=== PATIENT | female | born 1960 | race Caucasian/White ===

== ENCOUNTER → 2017-08-12 10:39 | Outpatient (CLI) | payer BC, SELFPAY ==
[2017-08-12 12:21] LABS: Creatinine, Serum 0.69 mg/dL (0.55-1.02); EST Glomerular Filtration Rate 94 mL/min (>60); Est Glom Filt Rate - Afr Amer 114 mL/min (>60)
== END ==
PROVIDERS: Family Provider Family Medicine; PCP Family Medicine; Visit Provider Orthopaedic Surgery Orthopaedic Surgery of the Spine
DX: Z98.890 Other specified postprocedural states (principal)
CPT/HCPCS: 36415; 82565

== ENCOUNTER → 2019-12-06 16:30 | Outpatient (CLI) | payer BC, SELFPAY | PROVIDERS: PCP Family Medicine; Visit Provider Family Medicine | DX: R19.7 Diarrhea, unspecified (principal) | CPT/HCPCS: 87493; 87506 ==

== ENCOUNTER 2022-02-09 15:25 | Emergency (ER) | payer BC, SELFPAY ==
[2022-02-09 15:27] VITALS: BP 161/82; PULSE 62; RESP 16; TEMP 36.4; O2SAT 98; BMI 23.0
[2022-02-09 15:39] VITALS: BP 153/83; PULSE 59; RESP 18; TEMP 36.4; O2SAT 98
[2022-02-09 15:41] VITALS: BMI 23.8
--- NOTE | 2022-02-09 16:19 | EDS_ITS ---
HPI History of Present Illness Chief Complaint: Numb/Ting Informant: patient Onset/Context/Timing Onset: Days (3) Context: Sudden Onset Timing: Continuous Quality: Tingling, weakness Location: Right lower extremity Worsened by: Nothing Relieved by: Ice packs Narrative Narrative: Patient presents with numbness and tingling to her right leg for the past 2 days. Patient states she has some paresthesias over the lateral aspect of her right foot. Patient states her right lower extremity was weaker initially. Patient states she was having difficulty walking because of this on Monday but this is better currently. Patient also admits to some white spots in her vision and blurred vision in her right eye for the past couple days as well. Patient admits to a mild headache. Patient denies any difficulty breathing or difficulty swallowing. [facility] Medical History (Updated 02/09/22 @ 19:[address] Boby Fox DO) Anxiety Hypertension Home Medications lisinopril 10 mg tablet 10 mg PO DAILY 02/09/22 [History Last Taken Unknown] metoprolol tartrate 100 mg tablet 100 mg PO DAILY 02/09/22 [History Last Taken Unknown] Allergy/AdvReac Type Severity Reaction Status Date / Time No Known Allergies Allergy Verified 02/09/22 15:46 Surgical History (Updated 02/09/22 @ 16:[address] Boby Fox DO) History of back surgery Social History Smoking Status: Current every day smoker tobacco type: cigarettes ROS ROS ED Constitutional Constitutional ED: Denies chills or fever(s) Eyes Eyes: Reports blurry vision right and change in vision right; Denies diplopia ENT ENT ED: Denies rhinorrhea or sore throat Cardiovascular Cardiovascular: Denies chest pain or palpitations Respiratory/Chest Respiratory/Chest: Denies cough or dyspnea Gastrointestinal Gastrointestinal: Denies nausea or vomiting Genitourinary Genitourinary ED: Denies dysuria or hematuria Musculoskeletal Musculoskeletal: Denies back pain or neck pain Integumentary Denies abscess or rash Neurologic Neurologic: Reports paresthesias RLE and weakness; Denies headache(s) Allergic/Immunologic Allergic/Immunologic ED: Denies mouth swelling or urticaria EXAM Physical Exam Const Vital Signs: 02/09/22 15:27 02/09/22 15:39 02/09/22 17:27 Temperature 97.6 F L 97.5 F L Temperature Source Temporal Oral Pulse Rate 62 59 L 69 Respiratory Rate 16 18 25 H Blood Pressure 161/82 H 153/83 H 122/57 H Blood Pressure Mean 108 106 78 Pulse Ox 98 98 97 Oxygen Delivery Method Room Air Room Air Room Air Positive well nourished and well developed General Appearance ED: well developed and NAD HEENT Reports moist mucous membranes Neck supple and no JVD Resp normal respiratory effort and clear to auscultation bilaterally Cardio regular rate, regular rhythm and no murmurs GI normal to inspection, nondistended, normoactive bowel sounds and non-tender Palpation: soft Extremity normal to inspection General Extremety ED: Negative for edema or tenderness General Extremity: Negative for edema Neuro oriented x3 and CN's II-XII intact bilaterally Sensorium / Orientation: alert Sensory Exam: sensory level loss detected Location: L5 (Right) Motor Exam: strength 5/5 throughout Psych mental status grossly normal Skin no rashes or lesions noted MDM MDM MDM Narrative Medical decision making narrative: CBC was within normal limits. Comprehensive metabolic profile was within normal limits. PT was INR and PTT were normal. Lactate was normal. Urinalysis does not show any evidence of urinary tract infection or hematuria. High-sensitivity troponin was normal. CT scan of the brain was obtained. There is a 5.2 x 2.2 x 2.4 cm ischemic infarct in the medial left posterior parietal region. There is no hemorrhage. There are no other acute intracranial abnormalities. This was interpreted by the radiologist and reviewed by myself. Patient was advised of her findings. I recommended admission to the hospital for further evaluation. Patient does not want to stay in the hospital. Patient states she has a family member with special needs who she needs to care for. Patient will sign out AGAINST MEDICAL ADVICE. I discussed the case with Dr. Sweeney who was covering for Dr. Valentino. He will have the patient follow-up in the office. He recommended starting the patient on aspirin. Patient was instructed to take 1 aspirin per day. Patient was instructed return if worse in any way. Patient understands and is agreeable with the plan. All questions were answered. Lab Data Attestation: I reviewed the patient's lab results. Labs: Laboratory Results - last 24 hr 02/09/22 02/09/22 02/09/22 16:33 16:33 16:33 WBC 10.0 RBC 4.65 Hgb 14.7 Hct 44.1 MCV 94.8 MCH 31.6 MCHC 33.3 RDW Std Deviation 42.9 RDW Coeff of Jerrell 12.3 Plt Count 316 MPV 8.7 Immature Gran % (Auto) 0.300 Neut % (Auto) 71.2 H Lymph % (Auto) 19.3 Johnston % (Auto) 5.6 Eos % (Auto) 3.0 Baso % (Auto) 0.6 Absolute Neuts (auto) 7.1 Absolute Lymphs (auto) 1.93 Nucleated RBC % 0 PT 13.2 INR 1.0 APTT 36.0 Sodium 136 Potassium 4.0 Chloride 105 Carbon Dioxide 23.0 Anion Gap 8 BUN 11 Creatinine 0.63 Estim Creat Clear Calc 88.90 Est GFR (MDRD) Af Amer 125 Est GFR (MDRD) Non-Af 103 BUN/Creatinine Ratio 17.6 Glucose 116 H Lactic Acid Calcium 9.0 Total Bilirubin 0.40 AST 19 ALT 23 Alkaline Phosphatase 110 Troponin I High Sens 10 Total Protein 7.0 Albumin 3.6 Globulin 3.4 Albumin/Globulin Ratio 1.1 Urine Color Urine Clarity Urine pH Ur Specific [place] Urine Protein Urine Glucose (UA) Urine Ketones Urine Occult Blood Urine Nitrite Urine Bilirubin Urine Urobilinogen Ur Leukocyte Esterase Urine RBC Urine WBC Ur Squamous Epith Cells Urine Bacteria Urine Mucus 02/09/22 02/09/22 16:33 17:30 WBC RBC Hgb Hct MCV MCH MCHC RDW Std Deviation RDW Coeff of Jerrell Plt Count MPV Immature Gran % (Auto) Neut % (Auto) Lymph % (Auto) Johnston % (Auto) Eos % (Auto) Baso % (Auto) Absolute Neuts (auto) Absolute Lymphs (auto) Nucleated RBC % PT INR APTT Sodium Potassium Chloride Carbon Dioxide Anion Gap BUN Creatinine Estim Creat Clear Calc Est GFR (MDRD) Af Amer Est GFR (MDRD) Non-Af BUN/Creatinine Ratio Glucose Lactic Acid 1.0 Calcium Total Bilirubin AST ALT Alkaline Phosphatase Troponin I High Sens Total Protein Albumin Globulin Albumin/Globulin Ratio Urine Color Yellow Urine Clarity Clear Urine pH 6.0 Ur Specific [place] 1.010 Urine Protein Negative Urine Glucose (UA) Normal Urine Ketones Negative Urine Occult Blood 50 H Urine Nitrite Negative Urine Bilirubin Negative Urine Urobilinogen Normal Ur Leukocyte Esterase Negative Urine RBC 0 SEEN Urine WBC 0 SEEN Ur Squamous Epith Cells 0 SEEN Urine Bacteria 0 SEEN Urine Mucus 0 SEEN Radiography Diagnostic Testing: Clinical Impression(s) from Imaging Studies Brain CT 02/09/22 16:52 IMPRESSION: 1. Relatively large 5.2 cm x 2.2 cm x 2.4 cm ischemic infarct in the medial left posterior parietal region without a hemorrhagic component. 2. No evidence of other intracranial infarcts, mass lesions, hemorrhage or hematomas. 3. No midline shift. 4. Normal calvarium and paranasal sinuses. Electronically Signed: Pollo Kimball MD at 17:53 EDT , Discharge Plan Triage Chief Complaint: Numb/Ting ED Provider: Boby Fox Dx/Rx/DC Orders Clinical Impression: Stroke, Hypertension Instructions: ED Stroke, Completed Prescriptions: No Action metoprolol tartrate 100 mg Tablet 100 mg PO DAILY lisinopril 10 mg Tablet 10 mg PO DAILY Primary Care Provider: Yomi Valentino Referrals: Yomi Sweeney MD [Non-Staff] - Yomi Valentino MD [Primary Care Provider] - 3-5 Days Activity Restrictions/Additional Instructions: Take 1 [id number] aspirin per day. Disposition Disposition: Against Medical Advice
[2022-02-09 16:42] LABS: Absolute Lymphocyte Count 1.93 X10^3/uL (0.83-4.51); Absolute Neutrophil Count 7.1 X10^3/uL (2.0-7.7); Basophil# 0.06 X10^3/uL; Basophil% 0.6 % (0-1); Hematocrit 44.1 % (37-47); Hemoglobin 14.7 g/dL (12.0-15.0); Lymphocyte # 1.93 X10^3/ul (0.83-4.51); Lymphocyte % 19.3 % (19-41); Mean Corp Hgb Conc 33.3 g/dL (32-36); Mean Corpuscular Hgb 31.6 pg (27.0-32.0); Mean Corpuscular Volume 94.8 fL (81-99); Mean Platelet Vol. 8.7 fl (6.2-12.0); Monocyte# 0.56 X10^3/uL; Monocyte% 5.6 % (0-10); NRBC Flagged by Analyzer 0 % (0-5); Neutrophil # 7.11 X10^3/uL (2.7-7.7); Neutrophil % 71.2 % (47-70); Platelet Count 316 K/mm3 (150-450); RBC Distribution Width CV 12.3 % (11.6-14.6); RBC Distribution Width SD 42.9 fl (35.1-43.9); Red Blood Count 4.65 M/mm3 (4.2-5.4)
--- NOTE | 2022-02-09 16:52 | CT_ITS ---
STUDY: CT BRAIN WITHOUT CONTRAST ADMINISTRATION OF 1656 HOURS ON 02/09/2022 REASON FOR EXAM: 61-year-old female with weakness. RADIATION DOSAGE (If Supplied By Facility): CTDIvol = ( 44.99 ) mGy, DLP = ( 812.98 ) mGycm. TECHNIQUE: Transaxial CT imaging of the brain was performed without administration of intravenous contrast material. Individualized dose optimization techniques were used for this CT. Sagittal and coronal reconstructions were obtained and all were demonstrated in osseous and soft tissue algorithms. COMPARISON: No relevant priors. FINDINGS: There is an ischemic infarct measuring 5.2 cm x 2.2 cm x 2.4 cm in the medial left posterior parietal region. No evidence of a hemorrhagic component. No evidence of other intracranial infarcts, mass lesions, hemorrhage or hematomas. There is no midline shift. The ventricular system is of normal size and configuration. Normal calvarium without linear or depressed skull fractures. There are normal paranasal sinuses. CT/Brain/Head without Contrast IMPRESSION: 1. Relatively large 5.2 cm x 2.2 cm x 2.4 cm ischemic infarct in the medial left posterior parietal region without a hemorrhagic component. 2. No evidence of other intracranial infarcts, mass lesions, hemorrhage or hematomas. 3. No midline shift. 4. Normal calvarium and paranasal sinuses. Electronically Signed: Pollo Kimball MD at 17:53 EDT ,
[2022-02-09 16:56] LABS: Prothrombin Time (Protime)PT. 13.2 SECONDS (11.7-14.9)
[2022-02-09 17:03] LABS: ALB/GLOB Ratio 1.1 RATIO (0.9-2.4); AST(SGOT) 19 U/L (15-37); Alanine Aminotransfer ALT/SGPT 23 U/L (13-56); Albumin, Serum 3.6 g/dL (3.2-5.0); Alkaline Phosphatase 110 U/L (45-117); Anion Gap 8 (5-15); BUN 11 mg/dL (7-18); BUN/Creat Ratio 17.6 RATIO (10-20); Chloride 105 mmol/L (98-107); Creatinine, Serum 0.63 mg/dL (0.55-1.02); EST Glomerular Filtration Rate 103 mL/min (>60); Est Glom Filt Rate - Afr Amer 125 mL/min (>60); Globulin 3.4 g/dL (2.2-4.2); Glucose 116 mg/dL (74-106); Sodium Level 136 mmol/L (136-145); Troponin-I HS 10 pg/mL (3.0-54.0)
[2022-02-09 17:27] VITALS: BP 122/57; PULSE 69; RESP 25; O2SAT 97
[2022-02-09 17:38] LABS: Bacteria 0 SEEN /hpf (None Seen); Mucous, Urine 0 SEEN /hpf (<or=2+); Red Blood Cells-Urine 0 SEEN /hpf (0-5); Squamous Epithelial Cells - UA 0 SEEN /hpf (5-10); White Blood Cells 0 SEEN /hpf (0-5)
[2022-02-09 17:40] LABS: Color, Urine Yellow (Yellow); Glucose, Dipstick Normal (Normal); Ketone-Dipstick Negative (Negative); Leukocyte Esterase-Dipstick Negative /ul (Negative); Nitrite-Dipstick Negative (Negative); Occult Blood-Urine 50 /ul (Negative); Protein-Dipstick Negative (Negative); Urine Bilirubin Dipstick Negative (Negative); Urine Clarity Clear (Clear); Urine Urobilinogen Normal (Normal)
[2022-02-09 19:03] VITALS: BP 142/79; PULSE 59; RESP 17; O2SAT 94
[2022-02-09 19:14] VITALS: BP 142/79; PULSE 59; RESP 16; O2SAT 93
== END 2022-02-09 19:25 | disposition left against medical advice (07) ==
PROVIDERS: Emergency Provider Emergency Medicine; PCP Family Medicine; Visit Provider Emergency Medicine
DX: I63.9 Cerebral infarction, unspecified (principal); I10 Essential (primary) hypertension; F17.210 Nicotine dependence, cigarettes, uncomplicated; Z79.899 Other long term (current) drug therapy; Z53.29 Procedure and treatment not carried out because of patient's decision for other reasons
CPT/HCPCS: 70450; 80053; 81001; 83605; 84484; 85025; 85610; 85730; 99285; A4216

== ENCOUNTER → 2022-02-23 | Outpatient (CLI) | payer BC, SELFPAY ==
--- NOTE | 2022-02-23 07:26 | CT_ITS ---
STUDY: CTA HEAD AND NECK WITH CONTRAST REASON FOR EXAM: Female, 61 years old. Confirmed L posterior parietal ischemic CVA; further work up for RADIATION DOSAGE (If Supplied By Facility): CTDIvol = ( 29.31 ) mGy, DLP = ( 1508.47 ) mGycm TECHNIQUE: CT angiography was performed with a multi-detector CT scanner. Data acquisition was obtained from the skull base through the vertex following intravenous administration of IV 100mL Isovue-370. MIP images were reconstructed from the axial data set. Post-processing of the angiographic images was performed, with multiplanar reformation and 3D reconstruction. Individualized dose optimization techniques were used for this CT. COMPARISON: No relevant priors. FINDINGS: Normal bilateral petrous carotid arteries. Normal right cavernous carotid artery with a normal supraclinoid bifurcation. Normal left cavernous carotid artery with a normal supraclinoid bifurcation. Normal right A1 segments of the anterior cerebral artery. Normal left A1 segments of the anterior cerebral artery. Normal intact anterior communicating artery (ACOM). Normal bilateral A2 segments of the anterior cerebral arteries. Normal right M1 and M2 segments of the middle cerebral arteries, with a normal M1 bifurcation. Normal left M1 and M2 segments of the middle cerebral arteries, with a normal M1 bifurcation. Normal right posterior communicating artery (PCOM). Normal left posterior communicating artery (PCOM). Normal bilateral vertebral arteries. Normal basilar artery with a normal basilar bifurcation. The visualized bilateral superior cerebellar (SCA) arteries are normal. Normal bilateral P1, P2 and visualized P3 segments of the posterior cerebral arteries. There is no demonstrated aneurysm of the [place]. Persistent mild decreased attenuation in the posterior left parietal region in keeping with prior infarction. It is less hypodense at this time. No surrounding edema is seen. AORTIC ARCH: There is atherosclerotic calcific plaque formation of the aortic arch and great vessels arising from the aortic arch, without a hemodynamically significant stenosis. There is a normal origin of the brachiocephalic, left common carotid, and left subclavian arteries. Focal plaque calcification at the origin of the right brachiocephalic artery. Mild enlargement of the right lobe of the thyroid. Heterogeneous appearance of both lobes slightly more prominent on the right side. RIGHT CAROTID ARTERIES: Normal right common carotid artery (CCA). Normal right common carotid bulb. Normal origin of the right internal carotid (ICA) artery without a hemodynamically significant stenosis. Normal visualized cervical portion of the right internal carotid artery. Normal origin of the right external carotid artery (ECA). LEFT CAROTID ARTERIES: Normal left common carotid artery (CCA). Normal left common carotid bulb. Normal origin of the left internal carotid (ICA) artery without a hemodynamically significant stenosis. Normal visualized cervical portion of the left internal carotid artery. Normal origin of the left external carotid artery (ECA). VERTEBRAL ARTERIES: There is enhancement within the bilateral vertebral arteries with a small right vertebral artery, and a dominant left vertebral artery. CT/CTA Head AND Neck W/ Contrast IMPRESSION: Normal CTA Head and neck with contrast. Electronically Signed: Juan De Leon MD at 10:33 EDT ,
== END | disposition home or self-care (01) ==
PROVIDERS: PCP Family Medicine; Referring Provider Nurse Practitioner Family; Visit Provider Nurse Practitioner Family
DX: I63.9 Cerebral infarction, unspecified (principal)
CPT/HCPCS: 70496; 70498; Q9967

== ENCOUNTER → 2022-03-08 | Outpatient (CLI) | payer BC, SELFPAY | END | disposition home or self-care (01) | LOC: PSN 09:06 | PROVIDERS: PCP Family Medicine; Referring Provider Nurse Practitioner Family; Visit Provider Nurse Practitioner Family | DX: I63.9 Cerebral infarction, unspecified (principal) | CPT/HCPCS: 93225; 93226 ==

== ENCOUNTER → 2022-05-11 | Outpatient (CLI) | payer BC, SELFPAY ==
--- NOTE | 2022-05-11 09:11 | ECHOD_ITS ---
Reason For Study: ARRYTHMIA Procedure This was a 2D Doppler, Color Flow transthoracic echocardiogram. Exam performed in department. Left Ventricle Normal LV size. Left ventricular systolic function is normal. The estimated ejection fraction is 60 %. Stage 2 diastolic dysfunction. No regional wall motion abnormalities noted. Right Ventricle Normal RV size. Normal systolic function. Atria Normal left atrium. Normal right atrium. Mitral Valve Normal mitral valve. Mild (1+) eccentric mitral valve insufficiency. Tricuspid Valve Normal tricuspid valve. Aortic Valve Trisinus/trileaflet aortic valve. Mild (1+) aortic valve insufficiency. Pulmonic Valve Normal pulmonic valve. Great Vessels Normal aortic root. The pulmonary artery is normal size. Normal inferior vena cava. Pericardium/Pleural No pericardial effusion. MMode/2D Measurements & Calculations LVIDd: 4.7 cm IVSd: 1.1 cm LAV(MOD-sp4): 31.1 ml LVIDs: 2.9 cm LVPWd: 0.96 cm FS: 38.9 % LVAd ap4: 20.3 cm2 SV(MOD-sp4): 33.0 ml SV(sp4-el): 35.0 ml LVLd ap4: 6.0 cm EDV(MOD-sp4): 57.2 ml EDV(sp4-el): 58.1 ml LVAs ap4: 12.2 cm2 LVLs ap4: 5.5 cm ESV(MOD-sp4): 24.2 ml ESV(sp4-el): 23.1 ml EF(MOD-sp4): 57.7 % EF(sp4-el): 60.3 % LA A4 area: 13.5 cm2 LA dimension(2D): 3.6 cm RA A4 area: 15.6 cm2 Time Measurements MV dec time: 0.23 sec Doppler Measurements & Calculations MV E max babak: 54.5 cm/sec Lat Peak E' Babak: 6.0 cm/sec Med Peak E' Babak: 4.6 cm/sec MV A max babak: 43.5 cm/sec E/E' lat: 9.0 E/E' med: 11.9 MV E/A: 1.3 MV V2 max: 71.4 cm/sec Ao V2 max: 111.9 cm/sec MV max P.1 mmHg MV dec slope: 240.7 cm/sec2 Ao max P.0 mmHg MV V2 mean: 33.0 cm/sec Ao V2 mean: 75.7 cm/sec MV mean P.56 mmHg Ao mean P.6 mmHg MV V2 VTI: 20.7 cm Ao V2 VTI: 28.2 cm AV (velocity ratio): 0.73 AI max babak: 475.7 cm/sec LV V1 max: 83.8 cm/sec TR max babak: 227.9 cm/sec AI max P.5 mmHg LV V1 max P.9 mmHg TR max P.8 mmHg AI dec slope: 287.0 cm/sec2 LV V1 mean P.5 mmHg AI P1/2t: 485.5 msec LV V1 mean: 57.4 cm/sec LV V1 VTI: 20.7 cm ECHO/Echo Complete Interpretation Summary Normal LV size. Left ventricular systolic function is normal. The estimated ejection fraction is 60 %. Stage 2 diastolic dysfunction. Mild (1+) eccentric mitral valve insufficiency. Ordering Physician: Cullen Uribe Referring Physician: Yomi Valentino Performed By: Huma Powell RCS
== END | disposition home or self-care (01) ==
LOC: CVS 09:11
PROVIDERS: PCP Family Medicine; Visit Provider Psychiatry & Neurology Neurology
DX: I10 Essential (primary) hypertension (principal); I50.30 Unspecified diastolic (congestive) heart failure; I63.9 Cerebral infarction, unspecified; Z86.79 Personal history of other diseases of the circulatory system; I34.0 Nonrheumatic mitral (valve) insufficiency
CPT/HCPCS: 93306

== ENCOUNTER → 2022-06-02 | Outpatient (CLI) | payer OTHER, SELFPAY | END | disposition home or self-care (01) | PROVIDERS: PCP Family Medicine; Referring Provider Psychiatry & Neurology Neurology; Visit Provider Psychiatry & Neurology Neurology | DX: G47.10 Hypersomnia, unspecified (principal) | CPT/HCPCS: 95806 ==

== ENCOUNTER → 2022-06-16 | Outpatient (CLI) | payer OTHER, SELFPAY ==
--- NOTE | 2022-06-16 17:10 | MRI_ITS ---
STUDY: MRI BRAIN WITH AND WITHOUT CONTRAST REASON FOR EXAM: Female, 61 years old. Recent ischemic stroke TECHNIQUE: Standardized multiplanar fat and water weighted pulse sequences were obtained. CLARISCAN IV 13mL was administered for the contrast portion of the examination. COMPARISON: CT of the brain February 09, 2022 FINDINGS: Normal size of the ventricles and extra-axial spaces for the patient''s age. Minor periventricular white matter ischemic changes without evidence for acute infarct. There is gliosis in the medial aspect of the left temporal lobe and upper lobe without restricted diffusion with subacute infarct in distribution of left posterior cerebral artery There is increased signal intensity noted within the paty on the T2 and STIR imaging sequences suggesting chronic ischemic changes however this is likely artifactual based on the linear nature of the abnormality. Normal bilateral basal ganglia. Normal thalami. There is no extra-axial fluid accumulation. Normal flow voids within the major intracranial circulation suggesting patency by spin echo criteria. Normal venous enhancement. There is no enhancing intra-axial or extra-axial abnormality. Normal sella turcica, pituitary gland, infundibular stalk, optic chiasm and hypothalamus. Normal tectal plate and pineal gland. Normal midbrain, and medulla. Normal cerebellum. Normal basal cisterns. Normal bilateral temporal bones. Normal bilateral internal auditory canals. No demonstrated orbital abnormality, within the constraints of a routine brain study. Minor mucosal thickening of the bilateral ethmoid air cells. Normal calvarium and skull base. Normal visualized soft tissue structures. Normal visualized upper cervical spine. MRI/Brain W/WO Contrast IMPRESSION: Findings consistent with subacute infarct in the left medial temporal and occipital lobes. Probable artifact within the paty although cannot definitively exclude chronic ischemic changes No evidence for acute infarct Electronically Signed: Raheel Manjarrez MD at 18:56 EST ,
[2022-06-16 17:40] LABS: CREATININE FINGERSTICK < 0.9 mg/dL (0.55-1.02); EGFR FINGERSTICK > 60.0000 mL/min (>60)
== END | disposition home or self-care (01) ==
PROVIDERS: PCP Family Medicine; Visit Provider Psychiatry & Neurology Neurology
DX: G93.89 Other specified disorders of brain (principal); I63.9 Cerebral infarction, unspecified; R41.3 Other amnesia
CPT/HCPCS: 70553; A9575

== ENCOUNTER → 2022-07-06 | Outpatient (CLI) | payer OTHER, SELFPAY ==
[2022-07-06 17:52] LABS: Absolute Lymphocyte Count 1.66 X10^3/uL (0.83-4.51); Absolute Neutrophil Count 6.7 X10^3/uL (2.0-7.7); Basophil# 0.06 X10^3/uL; Basophil% 0.6 % (0-1); Eosinophil# 0.57 X10^3/uL; Eosinophils% 5.9 % (0-5); Hematocrit 41.5 % (37-47); Hemoglobin 13.7 g/dL (12.0-15.0); Lymphocyte # 1.66 X10^3/ul (0.83-4.51); Lymphocyte % 17.2 % (19-41); Mean Corpuscular Hgb 31.7 pg (27.0-32.0); Mean Corpuscular Volume 96.1 fL (81-99); Mean Platelet Vol. 9.6 fl (6.2-12.0); Monocyte# 0.62 X10^3/uL; Monocyte% 6.4 % (0-10); NRBC Flagged by Analyzer 0 % (0-5); Neutrophil % 69.6 % (47-70); Platelet Count 319 K/mm3 (150-450); RBC Distribution Width CV 12.2 % (11.6-14.6); Red Blood Count 4.32 M/mm3 (4.2-5.4); White Blood Count 9.6 K/mm3 (4.4-11.0)
[2022-07-06 18:39] LABS: Hemoglobin A1c 6.3 % (3.8-5.6)
[2022-07-06 18:58] LABS: ALB/GLOB Ratio 1.1 RATIO (0.9-2.4); AST(SGOT) 25 U/L (15-37); Alanine Aminotransfer ALT/SGPT 29 U/L (13-56); Albumin, Serum 3.6 g/dL (3.2-5.0); Alkaline Phosphatase 128 U/L (45-117); Anion Gap 7 (5-15); BUN 14 mg/dL (7-18); BUN/Creat Ratio 20.6 RATIO (10-20); Calcium,Total 8.5 mg/dL (8.5-10.1); Chloride 106 mmol/L (98-107); Cholesterol 115 mg/dL (200); Creatinine, Serum 0.68 mg/dL (0.55-1.02); EST Glomerular Filtration Rate 94 mL/min (>60); Est Glom Filt Rate - Afr Amer 114 mL/min (>60); Globulin 3.4 g/dL (2.2-4.2); Glucose 115 mg/dL (74-106); High Density Lipoprotein 48 mg/dL; Magnesium 1.7 mg/dL (1.6-2.6); Potassium 3.8 mmol/L (3.5-5.1); Sodium Level 141 mmol/L (136-145); Thyroid Stim Hormone (TSH) 3.47 uIU/mL (0.358-3.74); Triglycerides 256 mg/dL; Very Low Density Lipoprotein 51 mg/dL (5-40)
== END | disposition home or self-care (01) ==
LOC: MFPLAB 16:37
PROVIDERS: PCP Family Medicine; Referring Provider Family Medicine; Visit Provider Family Medicine
DX: I47.1 Supraventricular tachycardia (principal); R73.01 Impaired fasting glucose; I10 Essential (primary) hypertension
CPT/HCPCS: 36415; 80053; 80061; 83036; 83735; 84443; 85025

== ENCOUNTER → 2022-09-07 | Outpatient (CLI) | payer OTHER, SELFPAY ==
[2022-09-14 18:07] LABS: Anti-Cardiolipin Ab, IgA, Qn < 9 APL U/mL (0-11); Anti-Cardiolipin Ab, IgG, Qn < 9 GPL U/mL (0-14); Anti-Cardiolipin Ab, IgM, Qn 24 MPL U/mL (0-12)
== END | disposition home or self-care (01) ==
LOC: MTLAB 09:08
PROVIDERS: PCP Family Medicine; Referring Provider Psychiatry & Neurology Neurology; Visit Provider Psychiatry & Neurology Neurology
DX: I63.9 Cerebral infarction, unspecified (principal)
CPT/HCPCS: 36415; 81240; 86147; 86160

== ENCOUNTER → 2023-02-01 | Outpatient (CLI) | payer OTHER, SELFPAY ==
[2023-02-01 15:51] LABS: Absolute Lymphocyte Count 1.53 X10^3/uL (0.83-4.51); Basophil# 0.05 X10^3/uL; Basophil% 0.7 % (0-1); Eosinophils% 5.4 % (0-5); Hematocrit 44.6 % (37-47); Hemoglobin 14.4 g/dL (12.0-15.0); Hemoglobin A1c 6.3 % (3.8-5.6); Lymphocyte # 1.53 X10^3/ul (0.83-4.51); Lymphocyte % 20.5 % (19-41); Mean Corp Hgb Conc 32.3 g/dL (32-36); Mean Corpuscular Hgb 31.4 pg (27.0-32.0); Mean Corpuscular Volume 97.2 fL (81-99); Mean Platelet Vol. 9.8 fl (6.2-12.0); Monocyte# 0.44 X10^3/uL; Monocyte% 5.9 % (0-10); NRBC Flagged by Analyzer 0 % (0-5); Neutrophil # 5.01 X10^3/uL (2.7-7.7); Neutrophil % 67.2 % (47-70); Platelet Count 334 K/mm3 (150-450); RBC Distribution Width CV 12.7 % (11.6-14.6); RBC Distribution Width SD 45.1 fl (35.1-43.9); Red Blood Count 4.59 M/mm3 (4.2-5.4); White Blood Count 7.5 K/mm3 (4.4-11.0)
[2023-02-01 16:03] LABS: ALB/GLOB Ratio 1.2 RATIO (0.9-2.4); AST(SGOT) 24 U/L (15-37); Alanine Aminotransfer ALT/SGPT 29 U/L (13-56); Albumin, Serum 3.8 g/dL (3.2-5.0); Alkaline Phosphatase 113 U/L (45-117); Anion Gap 6 (5-15); BUN 9 mg/dL (7-18); BUN/Creat Ratio 15.3 RATIO (10-20); Bilirubin, Direct 0.13 mg/dL (0.00-0.30); Calcium,Total 9.3 mg/dL (8.5-10.1); Chloride 105 mmol/L (98-107); Cholesterol 111 mg/dL (200); Creatinine, Serum 0.59 mg/dL (0.55-1.02); EST Glomerular Filtration Rate 111 mL/min (>60); Est Glom Filt Rate - Afr Amer 134 mL/min (>60); Globulin 3.3 g/dL (2.2-4.2); Glucose 109 mg/dL (74-106); High Density Lipoprotein 58 mg/dL; Magnesium 2.1 mg/dL (1.6-2.6); Potassium 4.1 mmol/L (3.5-5.1); Protein, Total 7.1 g/dL (6.4-8.2); Sodium Level 138 mmol/L (136-145); Triglycerides 148 mg/dL; Very Low Density Lipoprotein 30 mg/dL (5-40)
[2023-02-01 17:46] LABS: T4 Free Direct 0.94 ng/dL (0.76-1.46); Thyroid Stim Hormone (TSH) 3.89 uIU/mL (0.358-3.74)
[2023-02-03 13:08] LABS: ANTINUCLEAR ANTIBODIES DIRECT Negative (Negative)
== END | disposition home or self-care (01) ==
LOC: MFPLAB 11:38
PROVIDERS: Psychiatry & Neurology Neurology; PCP Family Medicine; Visit Provider Family Medicine
DX: I10 Essential (primary) hypertension (principal); I48.0 Paroxysmal atrial fibrillation; I63.9 Cerebral infarction, unspecified; R79.89 Other specified abnormal findings of blood chemistry
CPT/HCPCS: 36415; 80053; 80061; 82248; 83036; 83735; 84439; 84443; 85025; 86038; 86225; 86235

== ENCOUNTER → 2023-02-08 | Outpatient (CLI) | payer OTHER, SELFPAY ==
--- NOTE | 2023-02-08 | CYSPIN_PTH ---
PATIENT: BRENDA SALGADO [id number] AGE/SX: 62/F ROOM: RE02/08/[address]: Dr. Yomi Valentino MD : 1960 BED: DIS: 02/08/2023 SPEC #: [id number] RECD: 02/08/23 00:00 STATUS: LANDON KEITA #: [id number] LEENA: 02/08/23 00:[address]: Yomi Valentino DEPT: CYTOLOGY RECD BY: Singh Maddox Tissues: Urine Procedures: Pap Stain (control) Special Stain Group II Cytospin Fluid HEADER OPERATION: Not noted PRE-OP DIAGNOSIS: Benign essential hypertension TISSUE SUBMITTED: Urine for cytology DIAGNOSIS CYTOLOGY Urine for cytology (cytospin): Negative for high-grade urothelial carcinoma (NHGUC), [facility]ra System Category II. See comment. ANURADHA:yvan 02/10/2023 COMMENT The specimen predominantly consists of squamous epithelial cells. The [facility]ra System for urine cytology diagnostic categorization was used in the evaluation of this case. CYTOLOGY STUDY Slides are reviewed. CYTOLOGY GROSS Received is 10 ml of hazy yellow fluid labeled with the patient's name and and designated per the requisition as urine. Submitted for cytology preparation. / yvan 02/09/2023 TC:5 CPT: 19405
[2023-02-08 14:12] LABS: Bacteria 0 SEEN /hpf (None Seen); Mucous, Urine 0 SEEN /hpf (<or=2+)
[2023-02-08 15:24] LABS: Color, Urine Yellow (Yellow); Glucose, Dipstick Normal (Normal); Ketone-Dipstick Negative (Negative); Leukocyte Esterase-Dipstick 25 /ul (Negative); Nitrite-Dipstick Negative (Negative); Occult Blood-Urine 150 /ul (Negative); Protein-Dipstick Negative (Negative); Specific Gravity, Urine 1.015 (1.002-1.030); Urine Bilirubin Dipstick Negative (Negative); Urine Clarity Clear (Clear); Urine Urobilinogen Normal (Normal)
[2023-02-08 15:39] LABS: Red Blood Cells-Urine 5-10 SEEN /hpf (0-5); Squamous Epithelial Cells - UA 0-5 SEEN /hpf (5-10); White Blood Cells 0-5 SEEN /hpf (0-5)
[2023-02-09 13:42] LABS: Cytology, Body Fluid / CSF SEE PATHOLOGY REPORT
== END | disposition home or self-care (01) ==
LOC: LABSPEC 14:07
PROVIDERS: PCP Family Medicine; Visit Provider Family Medicine
DX: I10 Essential (primary) hypertension (principal)
CPT/HCPCS: 81001; 87086; 88108; 88313

== ENCOUNTER → 2023-06-07 | Outpatient (CLI) | payer OTHER, SELFPAY ==
--- OUTSIDE RECORDS SUMMARY | 2023-06-07 15:41 | XMS RPT_ITS | CCD ---
Author Name Unknown Address [address] [place] [address] Organization [facility] Care Team Providers Care [employer] Supervisor Name Role Phone Fabian Lebron Unavailable Unavailable PROVIDER, UNKNOWN Unavailable Unavailable Prabha Sweeney Unavailable Unavailable DEMARIO MENEZES, PRABHA Primary Care Physician Almaz PT, Yolanda Unavailable Unavailable TAWANA HARRISON, DYLON Attending Unavailable PRABHA HANKS MD Primary Care Unavailable DR CARMEN MCALLISTER MD Attending Unavailab PRABHA Ross MD Primary Care Unavailable ENRIQUEAT SPARKS Attending Unavailable PRABHA HANKS MD Primary Care Unavailable Medications Current Medications Medication Drug Class(es) Dates Sig (Normalized) Sig (Original) aspirin 81 mg delayed release oral tablet (3 sources) Platelet Aggregation Inhibitor, Nonsteroidal Anti-inflammatory Drug Start: 06-05-2020 aspirin 81 mg oral delayed release tablet Dose : 81 mg = 1 tab(s), Oral, Daily, 0 Refill(s) Start Date: 06/05/20 Status: Ordered Problems Problem Classification Problem Date Documented Da te Episodic/Chronic Anxiety disorders (6 sources) Anxiety; Translations: [Mixed anxiety and depressive disorder] 04-05-2017 Chronic Cardiac dysrhythmias (3 sources) Supraventricular tachycardia 06-01-2020 Chronic Results Test Name Value Interpretation Reference Range Facil ity Vital Signs Date Time Vital Sign Value Performing Clinician Faci lity 11-01-2021 11:13-0400 Diastolic Blood Pressure NBP [address] ENRIQUETA SPARKS MD [facility] 11-01-2021 11:13-0400 Heart rate 57 /min DR ENRIQUETA SPARKS MD [facility] 11-01-2021 11:13-0400 Respiratory rate 18 /min DR ENRIQUETA SPARKS MD [facility] 11-01-2021 11:13-0400 Systolic Blood Pressure NBP [address] ENRIQUETA SPARKS MD [facility] 11-01-2021 10:50-0400 Heart rate 57 /min DR ENRIQUETA SPARKS MD [facility] 11-01-2021 10:50-0400 Respiratory rate 29 /min DR ENRIQUETA SPARKS MD [facility] 11-01-2021 10:45-0400 Diastolic Blood Pressure NBP [address] ENRIQUETA SPARKS MD [facility] 11-01-2021 10:45-0400 Heart rate 58 /min DR ENRIQUETA SPARKS MD [facility] 11-01-2021 10:45-0400 Respiratory rate 24 /min DR ENRIQUETA SPARKS MD [facility] 11-01-2021 10:45-0400 Systolic Blood Pressure NBP [address] ENRIQUETA SPARKS MD [facility] 11-01-2021 10:40-0400 Diastolic Blood Pressure NBP [address] ENRIQUETA SPARKS MD [facility] 11-01-2021 10:40-0400 Systolic Blood Pressure NBP [address] ENRIQUETA SPARKS MD [facility] 11-01-2021 08:13-0400 Body height 167.[address] ENRIQUETA SPARKS MD [facility] 11-01-2021 07:52-0400 Body height 167.[address] ENRIQUETA SPARKS MD [facility] 11-01-2021 07:52-0400 Body temperature 97.7 [degF] DR ENRIQUETA SPARKS MD [facility] 11-01-2021 07:52-0400 Body weight 66.[address] ENRIQUETA SPARKS MD [facility] 11-01-2021 07:52-0400 Diastolic blood pressure 73 mm[Hg] DR ENRIQUETA SPARKS MD [facility] 11-01-2021 07:52-0400 Heart rate 63 /min DR ENRIQUETA SPARKS MD [facility] 11-01-2021 07:52-0400 Systolic blood pressure 149 mm[Hg] DR ENRIQUETA SPARKS MD [facility] Encounters Encounter Date Encounter Type Care Provider Facility Start: 07-13-2022 End: 07-14-2022 ambulatory DYLON GILLIAM MD. Facility:B Start: 07-13-2022 End: 07-13-2022 Patient encounter procedure DYLON GILLIAM MD. [facility] Start: 11-01-2021 End: 11-01-2021 ambulatory ENRIQUETA SPARKS Facility:B Start: 11-01-2021 End: 11-01-[address] ENRIQUETA SPARKS MD [facility] Start: 08-04-2021 End: 08-05-[address] CARMEN MCALLISTER MD Facility:[facility] Start: 08-04-2021 End: 08-04-[address] CARMEN MCALLISTER MD [facility] Start: 08-16-2017 Ambulatory Fabian Edwards [facility] Procedures Date Procedure Procedure Detail Performing Clinician Start: 04-06-[address] CARMEN MCALLISTER MD Immunizations Immunization Date Immunization Notes Care Provider [facility] 04-06-2017 influenza, injectabl e, quadrivalent, preservative free; Translations: [Fluarix Preservative-Free Quadrivalent ] DR CARMEN MCALLISTER MD [facility] Payers Date Payer Category Payer Private Health Insurance [id number] 2021 Unknown [id number] 1960 Unknown [id number] 1960 Unknown [id number] 1960 Unknown [id number] Unknown Social History Date Type Detail Facility Start: 07-09-2021 Heavy tobacco smoker (finding) [facility] Sex Assigned At Female [facility] Functional Status Date Assessment Result Facility 11-01-2021 Functional Status Maintained Robin Omero singleton [facility] Mental Status Date Assessment Result Facility 11-01-2021 Mental Status Orientation Oriented x 4 [facility] 11[facility]01-2021 [facility] Evaluation + Plan note 07-13-2022 Laboratory Note Date & Type Note Facility 07-13-2022 Evaluation + Plan note Diagnostic Tests PendingVitamin B1 (Thiamine), Whole Blood 07/13/22Kappa/Lambda, Free, Serum 07/13/22Antinuclear Antibody Screen, Serum 07/13/22Cardiolipin IgA Antibodies 07/13/22Cardiolipin IgG Antibodies 07/13/22Cardiolipin IgM Antibodies 07/13/22Antithrombin III Assay 07/13/22Complement Deficiency Assay 07/13/22Protein C Antigen 07/13/22Circulating Anticoagulants - Panel 07/13/22Protein S Activity Free Ag 07/13/22Protein C Activity 07/13/22APC Factor V Resistance 07/13/22 Future Scheduled TestsLipid Profile 01/06/22N-Terminal proBNP 01/06/22 [facility] Evaluation + Plan note 11-01-2021 Note Date & Type Note [facility] ADMISSION HISTORY AN D PHYSICIAL CHIEF COMPLAINT: HISTORY OF PRESENT ILLNESS: REVIEW OF SYSTEMS: ACTIVE PROBLEMS: (14) Anxiety (56482294) ANXIETY AND DEPRESSION (112288179) CH (chronic hepatitis) (227763737) CHRONIC LOW BACK PAIN WITH SCIATICA (230578122) DECREASED BMI (Renamed from UNDERWEIGHT) (134071556) ESSENTIAL HYPERTENSION (06607467) MILD CAD (7119380440) PALPITATIONS (077860400) PRE-OP EVALUATION (Renamed from ENCOUNTER FOR PRE-OPERATIVE EXAMINATION) (785493122) Sciatica (23220507) SCREENING FOR HYPERLIPIDEMIA (Renamed from ENCOUNTER FOR SCREENING FOR LIPID DISORDER) (330727961) SUPRAVENTRICULAR TACHYCARDIA (82647796) TOBACCO USE (059855565) Tobacco use (5915759202) MEDICATIONS: Active Inpt Meds: None Active PRN Meds: None One Time Meds: None Active IV Meds: Lactated Ringers Infusion 1,000 mL (LR 1,000 mL) Start: 11/01/21 7:45:00 EDT, Rate: 50 mL/hr, 11/01/21 7:45:00 EDT ALLERGIES: (1) NKA FAMILY HISTORY: SOCIAL HISTORY: PHYSICAL EXAM: VITALS: LmmifzBkshGLRtovdWCTyT1FIZ3SxlbEh(kg) 11/01 07:5236.5149/35318809AC92/13 66.8 24 Hr Tmax: 36.5 at 11/01 07:52 36 Hr Tmax: 36.5 at 11/01 07:52 Vital Signs are the last 5 in the past 48 hours. Weights display the last 5 within 7 days. Initial Wt: 11/01 66.8 kg 147 lb Current Wt: 11/01 66.8 kg 147 lb GENERAL: HEENT: CARDIOVASCULAR: RESPIRATORY: ABDOMEN: EXREMETIES: NEUROLOGICAL: PSYCHIATRIC: LABS: No 36hr Lab Data DIAGNOSTICS: IMPRESSION: PLAN: History and Physical Update I have examined the patient; reviewed the H&P and there are no changes to the H&P unless noted below. Future Scheduled Tests Laboratory* Lipid Profile 01/06/22 * Lipid Profile 12/03/20 * N-Terminal proBNP 01/06/22 * N-Terminal proBNP 12/03/20 [facility] Hospital Discharge instructions 11-01-2021 Note Date & Type Note Facility 11-01-2021 Hospital Discharg e instructions Patient Education 11/01/2021 11:04:02 Moderate Conscious Sedation, Adult, Care After Moderate Conscious Sedation, Adult, Care After These instructions provide you with information about caring for yourself after your procedure. Your health care provider may also give you more specific instructions. Your treatment has been planned according to current medical practices, but problems sometimes occur. Call your health care provider if you have any problems or questions after your procedure. What can I expect after the procedure? After your procedure, it is common: To feel sleepy for several hours. To feel clumsy and have poor balance for several hours. To have poor judgment for several hours. To vomit if you eat too soon. Follow these instructions at home: For at least 24 hours after the procedure: Do not: ?Participate in activities where you could fall or become injured. ?Drive. ?Use heavy machinery. ?Drink alcohol. ?Take sleeping pills or medicines that cause drowsiness. ?Make important decisions or sign legal documents. ?Take care of children on your own. Rest. Eating and drinking Follow the diet recommended by your health care provider. If you vomit: ?Drink water, juice, or soup when you can drink without vomiting. ?Make sure you have little or no nausea before eating solid foods. General instructions Have a responsible adult stay with you until you are awake and alert. Take cwqf-dwj-smtsxqn and prescription medicines only as told by your health care provider. If you smoke, do not smoke without supervision. Keep all follow-up visits as told by your health care provider. This is important. Contact a health care provider if: You keep feeling nauseous or you keep vomiting. You feel light-headed. You develop a rash. You have a fever. Get help right away if: You have trouble breathing. This information is not intended to replace advice given to you by your health care provider. Make sure you discuss any questions you have with your health care provider. Document Released: 02/26/2014 Document Revised: 04/20/2018 Document Reviewed: 08/27/2016 [employer] Patient Education 2020 [employer]. 11/01/2021 11:03:59 Colonoscopy, Adult, Care After, Lhnl-cf-Eafw Colonoscopy, Adult, Care After This sheet gives you information about how to care for yourself after your procedure. Your doctor may also give you more specific instructions. If you have problems or questions, call your doctor. What can I expect after the procedure? After the procedure, it is common to have: A small amount of blood in your poop for 24 hours. Some gas. Mild cramping or bloating in your belly. Follow these instructions at home: General instructions For the first 24 hours after the procedure: ?Do not drive or use machinery. ?Do not sign important documents. ?Do not drink alcohol. ?Do your daily activities more slowly than normal. ?Eat foods that are soft and easy to digest. Take bamq-tth-dutfbvj or prescription medicines only as told by your doctor. To help cramping and bloating: Try walking around. Put heat on your belly (abdomen) as told by your doctor. Use a heat source that your doctor recommends, such as a moist heat pack or a heating pad. ?Put a towel between your skin and the heat source. ?Leave the heat on for 20 30 minutes. ?Remove the heat if your skin turns bright red. This is especially important if you cannot feel pain, heat, or cold. You can get burned. Eating and drinking Drink enough fluid to keep your pee (urine) clear or pale yellow. Return to your normal diet as told by your doctor. Avoid heavy or fried foods that are hard to digest. Avoid drinking alcohol for as long as told by your doctor. Contact a doctor if: You have blood in your poop (stool) 2 3 days after the procedure. Get help right away if: You have more than a small amount of blood in your poop. You see large clumps of tissue (blood clots) in your poop. Your belly is swollen. You feel sick to your stomach (nauseous). You throw up (vomit). You have a fever. You have belly pain that gets worse, and medicine does not help your pain. Summary After the procedure, it is common to have a small amount of blood in your poop. You may also have mild cramping and bloating in your belly. For the first 24 hours after the procedure, do not drive or use machinery, do not sign important documents, and do not drink alcohol. Get help right away if you have a lot of blood in your poop, feel sick to your stomach, have a fever, or have more belly pain. This information is not intended to replace advice given to you by your health care provider. Make sure you discuss any questions you have with your health care provider. Document Released: 06/10/2011 Document Revised: 03/08/2018 Document Reviewed: 01/30/2017 [employer] Patient Education 2020 [employer] Follow Up Care 09/17/2021 08:09:36 With:ENRIQUETA SPARKS MD [facility] [address] [address] [phone] When: Unknown Comments:Repeat Colonoscopy in 10 years. [facility] Progress note 06-23-2021 Note Date & Type Note Facility 06-23-2021 Note HNO ID: [id number] Author: Hemant Carrillo Service: ? Author Type: Voice Over Artist Type: Progress Notes Filed: 06/23/2021 2:23 PM Note Text: Radiology Service Progress Note PATIENT NAME: Tyra Salgado DATE OF SERVICE: June 23, 2021 TIME: 1:54 PM PATIENT IDENTITY VERIFICATION COMPLETED USING TWO (2) IDENTIFIERS: Name and Date of confirmed by patient verbally. FALL SCREENING: Has the patient had 2 falls in the last year or 1 fall with injury or currently using an Ambulatory Assistive Device (Walker, Cane, Wheelchair, Crutches, etc.)? No PATIENT GENDER DATA: Female. status: : No status: NO. PATIENT RELEVANT IMPLANT DATA REVIEWED: Not Applicable RADIOLOGY DEPARTMENT: Mammography PERIPHERAL IV DATA: Not applicable SIGNED BY: Hemant Carrillo June 23, 2021 1:54 PM [facility] 06-23-2021 Note Date & Type Note Facility 06-23-2021 Note ADDITIONAL PROCEDURES PRESENT Specimen originated from [facility] Specimen #: [id number] Submitting Physician: KIKI ALLAN DO SPECIMEN SUBMITTED A: CERVICAL, SCREENING, FLUID FINAL DIAGNOSIS A. CERVICAL, SCREENING, FLUID Satisfactory for interpretation. Negative for intraepithelial lesion or malignancy. Atrophic specimen. Acute inflammation. This specimen has been analyzed by the ThinPrep Imaging System, an automated imaging and review system, which assists the laboratory in evaluating cells on ThinPrep Pap tests. Following automated imaging, selected vasquez from every slide are reviewed by a civil engineering design draftsperson. SEEMA Rahman(ASCP) (Electronic Signature) ADDITIONAL PROCEDURE(S) HUMAN PAPILLOMA VIRUS Date Ordered: 06/24/2021 Date Reported: 06/29/2021 Procedure Results and Interpretation Negative for HPV DNA high risk type 16 by PCR. Negative for HPV DNA high risk type 18 by PCR. Negative for HPV DNA high risk types: 31,33,35,39,45,51,52,56,58,59,66,68 by PCR. This test was developed and its performance characteristics determined by [facility]'s [facility] ([facility]). It has not been cleared or approved by the FDA. [facility] is regulated under CLIA as qualified to perform high-complexity testing. This test is used for clinical purposes. It should not be regarded as investigational or for research. CLINICAL DATA ROUTINE EXAM, HPV Testing: Yes, automatic HPV patients over 30 Date of Last Menstrual Period: Ablation STAINS A: CERVICAL, SCREENING, FLUID THIN PREP BURRITO MAKER Elle Cervantes M.D., Lease Purchase Driver Date of Report: 07/01/2021 Date of Procedure: 06/23/2021 Date of Receipt: 06/24/2021 Submitted by: KIKI LALAN DO Location: [facility] Diagnostic interpretation performed at [facility], [address] [place] [address]. CLIA Number: [id number] The Pap Smear is a screening test for cervical cancer. False negative results occur with all screening tests, emphasizing the need for rescreening at recommended intervals, and clinical correlation. [facility] Progress note 06-23-2021 Note Date & Type Note Facility 06-23-2021 Note HNO ID: [id number] Author: Kiki Allan MD Service: ? Author Type: Physician Type: Progress Notes Filed: 06/24/2021 10:30 AM Note Text: Luisa is a 60 year old who presents for an annual gynecologic exam without complaints. Postmenopausal: Yes, ablation in 2006 HRT use: No. Last Pap: 08/25/2015 normal HPV: 08/14/2015 negative History of abnormal pap: No Last mammogram: today History of abnormal mammogram: No Patient concerns for STD exposure: No OB History T2 L2 SAB0 IAB0 Ectopic0 Multiple0 Live Births0 Comment: x 2 Boring Machine Operator Production History LMP: 02/04/2008, Ablation Age at Menarche: Age at First : Age at Menopause: Boring Machine Operator Production History Comments: Sexual Activity: Yes; Male; novasure Contraception: Tubal Ligation PAST MEDICAL HISTORY Diagnosis Date - Excessive or frequent menstruation - Unspecified essential hypertension 1999 PAST SURGICAL HISTORY Procedure Laterality Date - BACK SURGERY HX 02/22/2018 - CARPAL TUNNEL Right - ENDOMETRIAL ABLTJ THERMAL W/O HYSTEROSCOPIC GUID 07/26 Novasure - FOOT SURGERY HX Right - PAST SURGICAL HISTORY OF 1995 laminectomy - RIGHT HEART CATHERIZATION FAMILY HISTORY Problem Relation Age of Onset - Heart Mother - Heart Father SOCIAL HISTORY Social History Tobacco Use - Smoking status: Current Every Day Smoker Packs/day: 1.00 Types: Cigarettes - Smokeless tobacco: Never Used Substance Use Topics - Alcohol use: Yes Comment: rarely - Drug use: No REVIEW OF SYSTEMS Abdomen: No abdominal pain, nausea, vomiting, diarrhea, or constipation. No bloating, early satiety, indigestion, or increased flatulence. Bladder: No dysuria, gross hematuria, urinary frequency, urinary urgency, or incontinence Breast: No breast lumps, nipple d/c, overlying skin changes, redness or skin retraction Allergies and current medication updated:Yes EXAM: BP 102/70 Ht 5' 5 (1.65m) Wt 145 lb 6.4 oz (66.0kg) LMP 02/04/2008 BMI 24.20 kg/(m2). GENERAL: pleasant, female in no apparent distress HEENT: Normocephalic, atraumatic, mucus membranes moist and no lesions NECK: full range of motion DERMATOLOGY: Normal, without lesions, non-icteric and non-hirsute BREAST: soft, non-tender, symmetric, no dominant mass, normal nipple-areolar complex, no lymphadenopathy and no nipple discharge CHEST: Normal inspiratory effort ABDOMEN: soft, non-tender and no masses PELVIC: external genitalia normal, normal Bartholin's glands, urethra, [place]'s glands, no vulvar lesions, no cervical lesions, good vaginal support, physiologic discharge present, normal appearing perineal body and perianal region BIMANUAL: uterus normal size, shape and consistency, no adnexal masses and non-tender RECTOVAGINAL: deferred. NEURO: exam grossly non-focal EXTREMITIES: normal ASSESSMENT/PLAN: 1) Health maintenance: Pap done with HPV Mammogram up to date Nutrition, exercise and routine health maintenance exams reviewed Colon cancer screening: Followed by PCP. Discussed importance and patient to schedule Reviewed importance of good self breast awareness 2) Follow up one year or sooner as needed Kiki Allan DO [facility] Evaluation + Plan note 12-03-2020 Laboratory Note Date & Type Note Facility 12-03-2020 Evaluation + Plan note Future Scheduled TestsN-Terminal proBNP 01/06/22N-Terminal proBNP 12/03/20Lipid Profile 01/06/22Lipid Profile 12/03/20 [facility] Hospital course Narrative Note Date & Type Note Facility Hospital course Narrative No data available for this section [facility] Hospital Discharge instructions Note Date & Type Note Facility Hospital Discharge instructions No data available for this section [facility] Progress note Note Date & Type Note Facility Progress note No data available for this section [facility] Summary Purpose Family History No Family History Records FoundNo Family History Records FoundNo Family History Records Found Advance Directives No Advanced Directives Records FoundNo Advanced Directives Records FoundNo Advanced Directives Records Found Additional Source Comments INFORMATION SOURCE (unrecogn ized section and content) DATE CREATED AUTHOR AUTHOR'S ORGANIZ ATION 08/09/2021 [facility] DATE CREATED AUTHOR AUTHOR'S ORGANIZ ATION 07/20/2022 [facility] ([place]) Care Team (unrecognized sect ion and content) Personnel Name: PRABHA HANKS MD Address: [address] [facility] [address] Name: Stephanie Muse Clerk Yolanda PT Care Team (unrecognized sect ion and content) Care Team Personnel Name: Stephanie Muse Clerlinda Guerrero PT Position: P3 Scheduling - Shutdown Coordinator Advanced Member Role: Other Name: PRABHA HANKS MD Member Role: Primary Care Physician Address: Address: [address] [facility] [address] Care Team Related Persons Name: ALLEGRA ALMARAZ FOR RECORDS PERTAINING TO PATIENTS WHO ARE OR HAVE BEEN ENROLLED IN A CHEMICAL DEPENDENCY/SUBSTANCEABUSE PROGRAM, SOME INFORMATION MAY BE OMITTED. This clinical summary was aggregated from multiple sources. Caution should be exercised in using it in the provision of clinical care. This summary normalizes information from multiple sources, and as a consequence, information in this document may materially change the coding, format and clinical context of patient data. In addition, data may be omitted in some cases. CLINICAL DECISIONS SHOULD BE BASED ON THE PRIMARY CLINICAL RECORDS. [facility]. provides no warranty or guarantee of the accuracy or completeness of information in this document.
[2023-06-07 17:43] LABS: Absolute Lymphocyte Count 1.93 X10^3/uL (0.83-4.51); Absolute Neutrophil Count 5.6 X10^3/uL (2.0-7.7); Basophil# 0.08 X10^3/uL; Basophil% 0.9 % (0-1); Eosinophil# 0.51 X10^3/uL; Eosinophils% 5.9 % (0-5); Hematocrit 47.7 % (37-47); Hemoglobin 15.3 g/dL (12.0-15.0); Lymphocyte # 1.93 X10^3/ul (0.83-4.51); Lymphocyte % 22.3 % (19-41); Mean Corp Hgb Conc 32.1 g/dL (32-36); Mean Corpuscular Hgb 31.1 pg (27.0-32.0); Mean Platelet Vol. 9.8 fl (6.2-12.0); Monocyte# 0.53 X10^3/uL; Monocyte% 6.1 % (0-10); NRBC Flagged by Analyzer 0 % (0-5); Neutrophil # 5.57 X10^3/uL (2.7-7.7); Neutrophil % 64.5 % (47-70); Platelet Count 357 K/mm3 (150-450); RBC Distribution Width CV 12.4 % (11.6-14.6); RBC Distribution Width SD 44.3 fl (35.1-43.9); Red Blood Count 4.92 M/mm3 (4.2-5.4); White Blood Count 8.7 K/mm3 (4.4-11.0)
[2023-06-07 18:17] LABS: Hemoglobin A1c 6.1 % (3.8-5.6)
[2023-06-07 18:24] LABS: ALB/GLOB Ratio 1.2 RATIO (0.9-2.4); AST(SGOT) 30 U/L (15-37); Alanine Aminotransfer ALT/SGPT 26 U/L (13-56); Albumin, Serum 4.2 g/dL (3.2-5.0); Alkaline Phosphatase 121 U/L (45-117); Anion Gap 4 (5-15); BUN 13 mg/dL (7-18); Calcium,Total 9.5 mg/dL (8.5-10.1); Chloride 105 mmol/L (98-107); Cholesterol 129 mg/dL (200); Creatinine, Serum 0.72 mg/dL (0.55-1.02); EST Glomerular Filtration Rate 87 mL/min (>60); Est Glom Filt Rate - Afr Amer 105 mL/min (>60); Globulin 3.4 g/dL (2.2-4.2); Glucose 104 mg/dL (74-106); High Density Lipoprotein 70 mg/dL; Magnesium 2.3 mg/dL (1.6-2.6); Potassium 3.9 mmol/L (3.5-5.1); Protein, Total 7.6 g/dL (6.4-8.2); Sodium Level 139 mmol/L (136-145); Thyroid Stim Hormone (TSH) 4.46 uIU/mL (0.358-3.74); Triglycerides 104 mg/dL; Very Low Density Lipoprotein 21 mg/dL (5-40)
== END | disposition home or self-care (01) ==
PROVIDERS: PCP Family Medicine; Referring Provider Family Medicine; Visit Provider Family Medicine
DX: R73.02 Impaired glucose tolerance (oral) (principal); F17.200 Nicotine dependence, unspecified, uncomplicated; I10 Essential (primary) hypertension
CPT/HCPCS: 36415; 80053; 80061; 81002; 83036; 83735; 84443; 85025

== ENCOUNTER → 2024-01-31 | Outpatient (CLI) | payer OTHER, SELFPAY ==
[2024-01-31 16:45] LABS: Bacteria 0 SEEN /hpf (None Seen); Mucous, Urine 0 SEEN /hpf (<or=2+); White Blood Cells 0 SEEN /hpf (0-5)
[2024-01-31 17:28] LABS: Absolute Lymphocyte Count 1.53 X10^3/uL (0.83-4.51); Basophil# 0.06 X10^3/uL; Basophil% 0.8 % (0-1); Eosinophil# 0.31 X10^3/uL; Eosinophils% 4.2 % (0-5); Hematocrit 41.3 % (37-47); Hemoglobin 13.8 g/dL (12.0-15.0); Lymphocyte # 1.53 X10^3/ul (0.83-4.51); Lymphocyte % 20.6 % (19-41); Mean Corp Hgb Conc 33.4 g/dL (32-36); Mean Corpuscular Hgb 30.8 pg (27.0-32.0); Mean Corpuscular Volume 92.2 fL (81-99); Mean Platelet Vol. 9.3 fl (6.2-12.0); Monocyte# 0.54 X10^3/uL; Monocyte% 7.3 % (0-10); NRBC Flagged by Analyzer 0 % (0-5); Neutrophil # 4.97 X10^3/uL (2.7-7.7); Platelet Count 308 K/mm3 (150-450); RBC Distribution Width CV 12.6 % (11.6-14.6); Red Blood Count 4.48 M/mm3 (4.2-5.4); White Blood Count 7.4 K/mm3 (4.4-11.0)
[2024-01-31 17:32] LABS: Color, Urine Straw (Yellow); Glucose, Dipstick Normal (Normal); Ketone-Dipstick Negative (Negative); Leukocyte Esterase-Dipstick Negative /ul (Negative); Nitrite-Dipstick Negative (Negative); Occult Blood-Urine 50 /ul (Negative); Protein-Dipstick Negative (Negative); Urine Bilirubin Dipstick Negative (Negative); Urine Clarity Clear (Clear); Urine Urobilinogen Normal (Normal)
[2024-01-31 17:56] LABS: Red Blood Cells-Urine 0-5 SEEN /hpf (0-5); Squamous Epithelial Cells - UA 0-5 SEEN /hpf (5-10)
[2024-01-31 18:13] LABS: ALB/GLOB Ratio 1.2 RATIO (0.9-2.4); AST(SGOT) 20 U/L (15-37); Alanine Aminotransfer ALT/SGPT 22 U/L (13-56); Albumin, Serum 3.9 g/dL (3.2-5.0); Alkaline Phosphatase 114 U/L (45-117); Anion Gap 6 (5-15); BUN 8 mg/dL (7-18); Calcium,Total 9.5 mg/dL (8.5-10.1); Chloride 101 mmol/L (98-107); Cholesterol 107 mg/dL (200); Creatinine, Serum 0.62 mg/dL (0.55-1.02); EST Glomerular Filtration Rate 104 mL/min (>60); Est Glom Filt Rate - Afr Amer 126 mL/min (>60); Globulin 3.2 g/dL (2.2-4.2); Glucose 99 mg/dL (74-106); High Density Lipoprotein 55 mg/dL; Potassium 3.6 mmol/L (3.5-5.1); Protein, Total 7.1 g/dL (6.4-8.2); Sodium Level 135 mmol/L (136-145); Triglycerides 127 mg/dL; Very Low Density Lipoprotein 25 mg/dL (5-40)
[2024-01-31 18:30] LABS: Hemoglobin A1c 6.4 % (3.8-5.6)
== END | disposition home or self-care (01) ==
LOC: MFPLAB 16:40
PROVIDERS: PCP Family Medicine; Visit Provider Family Medicine
DX: R73.02 Impaired glucose tolerance (oral) (principal); I48.0 Paroxysmal atrial fibrillation; E78.5 Hyperlipidemia, unspecified; F17.200 Nicotine dependence, unspecified, uncomplicated
CPT/HCPCS: 36415; 80053; 80061; 81001; 83036; 83735; 85025

== ENCOUNTER 2024-06-18 13:29 | Emergency (ER) | payer OTHER, SELFPAY ==
[2024-06-18 13:30] VITALS: BP 153/72; PULSE 104; RESP 18; TEMP 37.2; O2SAT 98; BMI 21.8
--- NOTE | 2024-06-18 14:26 | VDUE_ITS ---
Reason For Study: Swelling Left Proximal Left jugular vein is spontaneous, widely patent, phasic, with no intraluminal echogenicity noted. Left subclavian vein is spontaneous, widely patent, phasic, with no intraluminal echogenicity noted. Left Arm Left axillary vein is spontaneous, patent, phasic, competent, compressible and demonstrates augmentation. Left brachial vein is compressible. Left cephalic vein is compressible. Left basilic vein is compressible. Left Lower Arm Left radial vein is compressible. Left ulnar vein is compressible. Procedure This was a unilateral left upper extremity venous doppler examination. Exam performed portable in ED. A preliminary report was called and/or faxed to Dr. Cannon. VL/Venous Duplex US, Unilateral Interpretation Summary Deep veins of the left upper extremity are patent and compressible segmentally. There is no evidence of deep vein thrombosis. Superficial veins of the left upper extremity are patent and compressible segme ntally. There is no evidence of superficial vein thrombosis. Ordering Physician: Deion Rios Referring Physician: Yomi Valentino Performed By: Livia Mills RVT and Student ???
--- NOTE | 2024-06-18 14:27 | EX.ED.DYSGE1 ---
HPI History of Present Illness Chief Complaint: Cellulitis Informant: patient Narrative Narrative: 63-year-old female presenting to the emergency room for rash left patient states that on May 27 she had a red raised rash and swollen right eye. She was seen at an urgent care and was prescribed doxycycline and steroids. She states on June 02 when things were improved she suddenly developed swelling of her lips and was seen at another emergency department where it was felt that she had angioedema due to lisinopril. Her symptoms resolved and on June 15 and states she had a viral like flu illness with vomiting. She states that resolved and she went to work yesterday. Yesterday afternoon into the evening she developed a red itchy swelling of the left hand and she wonders if she was bit by something. It progressed onto the volar aspect of the left forearm by today and she veronica a line and now notes a new area just distal to the AC fossa. She notes the swelling is slightly better. Continues to be warm and itchy. She denies any new soaps or lotions. She notes that she had her IV in her left forearm. She states that she did not have an IV in the AC fossa. No reported fevers. No myalgias.. She is on apixaban for atrial fibrillation. She notes a history of stroke about 2 years ago. Patient also notes that today she had a hive on the right medial thigh. [facility] Medical History Cellulitis of right upper extremity Allergic dermatitis Anxiety Hypertension Home Medications ?Medication ?Instructions ?Recorded ?Last Taken ?Type buspirone 10 mg tablet 10 mg PO TID 05/05/22 Unknown History hydroxyzine HCl 25 mg tablet 25 mg PO QHS 05/05/22 Unknown History lisinopril 10 mg tablet 10 mg PO DAILY #30 tabs 05/05/22 Unknown Rx paroxetine HCl 40 mg tablet (Paxil) 40 mg PO DAILY 05/05/22 Unknown History apixaban 5 mg tablet (Eliquis) 5 mg PO BID #180 tabs 05/06/24 Unknown Rx atorvastatin 40 mg tablet 40 mg PO DAILY #90 tabs 05/06/24 Unknown Rx metoprolol tartrate 50 mg tablet 75 mg PO QDAY 05/06/24 Unknown History doxycycline monohydrate 100 mg 100 mg PO BID #20 caps 05/27/24 Unknown Rx capsule methylprednisolone 4 mg tablets in See Rx Instructions PO PER PKG DIR 05/27/24 Unknown Rx a dose pack (Medrol (Jeet)) #21 tabs metoprolol succinate 25 mg 25 mg PO QDAY 05/27/24 Unknown History tablet,extended release 24 hr prednisone 20 mg tablet See Rx Instructions .Route 06/18/24 Unknown Rx .COMPLEX #24 tabs Allergy/AdvReac Type Severity Reaction Status Date / Time No Known Allergies Allergy Verified 06/18/24 13:30 Family History Mother CVA (cerebral vascular accident) Father Heart disease Brother Heart disease Surgical History History of back surgery Social History Smoking Status: Heavy Smoker (>10/day) Tobacco: How many years used: 15 alcohol intake: current details: occasionally substance use type: does not use caffeine: Yes (coffee) Type: coffee Number of servings: 2 what type of physical activity do you participate in: none antione/advent: None seatbelt use: always ROS ROS ED Constitutional Constitutional ED: Denies chills, fever(s) or weight loss Eyes Eyes: Denies change in vision or diplopia ENT ENT ED: Denies ear pain, rhinorrhea or sore throat Cardiovascular Cardiovascular: Denies chest pain, orthopnea, palpitations or racing heartbeat Respiratory/Chest Respiratory/Chest: Denies cough, dyspnea or orthopnea Gastrointestinal Gastrointestinal: Denies abdominal pain, diarrhea, nausea or vomiting Genitourinary Genitourinary ED: Denies dysuria, hematuria or urinary frequency Musculoskeletal Musculoskeletal: Denies arthralgias or myalgias Integumentary Reports rash and other Details: See history of present illness ; Denies abscess Neurologic Neurologic: Denies headache(s) or weakness Psychiatric Psychiatric: Denies anxiety, depression, suicidal ideation or suicidal thoughts Endocrine Endocrinology: Denies polydipsia, polyphagia or polyuria Allergic/Immunologic Allergic/Immunologic ED: Denies mouth swelling, tongue swelling or urticaria EXAM Physical Exam Const Vital Signs: 06/18/24 13:30 06/18/24 15:30 06/18/24 16:38 Temperature 98.9 F 98.9 F Temperature Source Oral Pulse Rate 104 H 66 66 Respiratory Rate 18 14 14 Blood Pressure 153/72 H 153/72 H Blood Pressure Mean 99 99 Pulse Ox 98 97 97 Oxygen Delivery Method Room Air Positive well nourished and well developed General Appearance ED: well developed HEENT Reports normocephalic, head/scalp atraumatic and moist mucous membranes Eyes PERRL and EOMs intact bilaterally Neck no lymphadenopathy, supple and no JVD Resp normal respiratory effort and clear to auscultation bilaterally Cardio regular rate, regular rhythm and no murmurs GI normal to inspection, nondistended, normoactive bowel sounds and non-tender Palpation: soft Back/Spine no CVA tenderness and normal ROM Extremity Extremity Narrative: Left hand is minimally swollen compared to the right. There is an area of excoriation on the dorsal surface near the base of the thumb. There is erythema and mild swelling on the volar surface of the left forearm. There is palpable increased warmth. The erythematous slightly raised. There is about a 3 finger breath in between this area and then a circular area just proximal to it is also slightly raised warm and red. Neuro oriented x3 and CN's II-XII intact bilaterally Sensorium / Orientation: alert Motor Exam: strength 5/5 throughout Psych mental status grossly normal Mood & Affect: Negative for depressed or tearful Skin no rashes or lesions noted and no wounds MDM MDM MDM Narrative Medical decision making narrative: Differential diagnosis includes but not limited to cellulitis allergic reaction gout pseudogout viral exanthem DVT thrombophlebitis Duplex ultrasound of the left upper extremity is negative for DVT. White count is 8.6 hemoglobin 13.3 platelet count of 308. Normal BMP and liver enzymes. Photos were taken for the medical chart. Clinically I think this more looks like urticaria/allergic immune reaction rather than cellulitis. I would have the patient again take steroids. When asked that she follow-up with her primary care doctor as this is now the third different facility to see her in the past few weeks. History & Record Review Discussion w/independent historian: Patient Lab Data Attestation: I reviewed the patient's lab results. Labs: Laboratory Results - last 24 hr 06/18/24 15:15 WBC 8.6 RBC 4.04 L Hgb 13.3 Hct 38.3 MCV 94.8 MCH 32.9 H MCHC 34.7 RDW Std Deviation 42.6 RDW Coeff of Jerrell 12.2 Plt Count 308 MPV 9.1 Immature Gran % (Auto) 0.500 Neut % (Auto) 71.7 H Lymph % (Auto) 18.8 L Roane % (Auto) 5.4 Eos % (Auto) 3.0 Baso % (Auto) 0.6 Absolute Neuts (auto) 6.2 Absolute Lymphs (auto) 1.62 Nucleated RBC % 0 Sodium 141 Potassium 3.6 Chloride 104 Carbon Dioxide 29.0 Anion Gap 8 BUN 7 Creatinine 0.58 Estim Creat Clear Calc 94.15 Est GFR (MDRD) Af Amer 134 Est GFR (MDRD) Non-Af 111 BUN/Creatinine Ratio 12.0 Glucose 92 Calcium 9.2 Total Bilirubin 0.60 Direct Bilirubin 0.14 AST 24 ALT 26 Alkaline Phosphatase 115 Total Protein 7.2 Albumin 3.7 Globulin 3.5 Radiography Diagnostic Testing: Clinical Impression(s) from Imaging Studies Venous Doppler Study 06/18/24 14:26 Interpretation Summary Deep veins of the left upper extremity are patent and compressible segmentally. There is no evidence of deep vein thrombosis. Superficial veins of the left upper extremity are patent and compressible segmentally. There is no evidence of superficial vein thrombosis. Ordering Physician: Deion Rios Referring Physician: Yomi Valentino Performed By: Livia Mills RVT and Student ??? Discharge Plan Triage Chief Complaint: Cellulitis ED Provider: Deion Rios Dx/Rx/DC Orders Clinical Impression: Urticaria Instructions: ED Hives (Adult) Prescriptions: New prednisone 20 mg tablet See Rx Instructions .ROUTE .COMPLEX Qty: 24 0RF Rx Instructions: 3 tabs p.o. daily x 4 days then 2 tabs p.o. daily x 4 days then 1 tab p.o. daily x 4 days No Action paroxetine HCl [Paxil] 40 mg tablet 40 mg PO DAILY buspirone 10 mg tablet 10 mg PO TID hydroxyzine HCl 25 mg tablet 25 mg PO QHS lisinopril 10 mg tablet 10 mg PO DAILY Qty: 30 5RF metoprolol tartrate 50 mg tablet 75 mg PO QDAY atorvastatin 40 mg tablet 40 mg PO DAILY Qty: 90 4RF Eliquis 5 mg tablet 5 mg PO BID Qty: 180 0RF metoprolol succinate 25 mg tablet extended release 24 hr 25 mg PO QDAY doxycycline monohydrate 100 mg capsule 100 mg PO BID Qty: 20 0RF methylprednisolone [Medrol (Jeet)] 4 mg tablets,dose pack See Rx Instructions PO PER PKG DIR Qty: 21 0RF Rx Instructions: PO PER PKG DIR Primary Care Provider: Yomi Valentino Referrals: Yomi Valentino MD [Primary Care Provider] - 3-5 Days Print Language: [place] Disposition Disposition: Home, Self Care Discharge Date/Time: 06/18/24 16:38
[2024-06-18 15:30] VITALS: PULSE 66; RESP 14; O2SAT 97
[2024-06-18 15:42] LABS: Absolute Lymphocyte Count 1.62 X10^3/uL (0.83-4.51); Absolute Neutrophil Count 6.2 X10^3/uL (2.0-7.7); Basophil# 0.05 X10^3/uL; Basophil% 0.6 % (0-1); Eosinophil# 0.26 X10^3/uL; Hematocrit 38.3 % (37-47); Hemoglobin 13.3 g/dL (12.0-15.0); Lymphocyte # 1.62 X10^3/ul (0.83-4.51); Lymphocyte % 18.8 % (19-41); Mean Corp Hgb Conc 34.7 g/dL (32-36); Mean Corpuscular Hgb 32.9 pg (27.0-32.0); Mean Corpuscular Volume 94.8 fL (81-99); Mean Platelet Vol. 9.1 fl (6.2-12.0); Monocyte# 0.47 X10^3/uL; Monocyte% 5.4 % (0-10); NRBC Flagged by Analyzer 0 % (0-5); Neutrophil # 6.19 X10^3/uL (2.7-7.7); Neutrophil % 71.7 % (47-70); Platelet Count 308 K/mm3 (150-450); RBC Distribution Width CV 12.2 % (11.6-14.6); RBC Distribution Width SD 42.6 fl (35.1-43.9); Red Blood Count 4.04 M/mm3 (4.2-5.4); White Blood Count 8.6 K/mm3 (4.4-11.0)
[2024-06-18 16:13] LABS: AST(SGOT) 24 U/L (15-37); Alanine Aminotransfer ALT/SGPT 26 U/L (13-56); Albumin, Serum 3.7 g/dL (3.2-5.0); Alkaline Phosphatase 115 U/L (45-117); Anion Gap 8 (5-15); BUN 7 mg/dL (7-18); Bilirubin, Direct 0.14 mg/dL (0.00-0.30); Calcium,Total 9.2 mg/dL (8.5-10.1); Chloride 104 mmol/L (98-107); Creatinine, Serum 0.58 mg/dL (0.55-1.02); EST Glomerular Filtration Rate 111 mL/min (>60); Est Glom Filt Rate - Afr Amer 134 mL/min (>60); Estimated Creatinine Clearance 94.15 ml/min; Globulin 3.5 g/dL (2.2-4.2); Glucose 92 mg/dL (74-106); Potassium 3.6 mmol/L (3.5-5.1); Protein, Total 7.2 g/dL (6.4-8.2); Sodium Level 141 mmol/L (136-145)
[2024-06-18 16:38] VITALS: BP 153/72; PULSE 66; RESP 14; TEMP 37.2; O2SAT 97
== END 2024-06-18 16:38 | disposition home or self-care (01) ==
PROVIDERS: Emergency Provider Emergency Medicine; PCP Family Medicine; Visit Provider Emergency Medicine
DX: L50.9 Urticaria, unspecified (principal); I48.91 Unspecified atrial fibrillation; Z79.01 Long term (current) use of anticoagulants; Z86.73 Personal history of transient ischemic attack (TIA), and cerebral infarction without residual deficits; F41.9 Anxiety disorder, unspecified; I10 Essential (primary) hypertension; Z79.899 Other long term (current) drug therapy; M79.89 Other specified soft tissue disorders
CPT/HCPCS: 80048; 80076; 85025; 87040; 93971; 99283; A4216

== ENCOUNTER → 2024-07-03 | Outpatient (CLI) | payer OTHER, SELFPAY ==
[2024-07-03 18:03] LABS: Absolute Lymphocyte Count 1.77 X10^3/uL (0.83-4.51); Absolute Neutrophil Count 13.4 X10^3/uL (2.0-7.7); Basophil# 0.12 X10^3/uL; Basophil% 0.7 % (0-1); Color, Urine Yellow (Yellow); Eosinophil# 0.17 X10^3/uL; Glucose, Dipstick Normal (Normal); Hematocrit 45.7 % (37-47); Hemoglobin 15.3 g/dL (12.0-15.0); Ketone-Dipstick Negative (Negative); Leukocyte Esterase-Dipstick Negative /ul (Negative); Lymphocyte # 1.77 X10^3/ul (0.83-4.51); Lymphocyte % 10.6 % (19-41); Mean Corp Hgb Conc 33.5 g/dL (32-36); Mean Corpuscular Hgb 32.1 pg (27.0-32.0); Mean Platelet Vol. 9.4 fl (6.2-12.0); Monocyte# 0.93 X10^3/uL; Monocyte% 5.6 % (0-10); NRBC Flagged by Analyzer 0 % (0-5); Neutrophil # 13.44 X10^3/uL (2.7-7.7); Neutrophil % 80.8 % (47-70); Nitrite-Dipstick Negative (Negative); Occult Blood-Urine 150 /ul (Negative); Platelet Count 302 K/mm3 (150-450); Protein-Dipstick Negative (Negative); RBC Distribution Width CV 13.4 % (11.6-14.6); RBC Distribution Width SD 47.3 fl (35.1-43.9); Red Blood Count 4.76 M/mm3 (4.2-5.4); Urine Bilirubin Dipstick Negative (Negative); Urine Clarity Clear (Clear); Urine Urobilinogen Normal (Normal); White Blood Count 16.6 K/mm3 (4.4-11.0)
[2024-07-03 18:18] LABS: ALB/GLOB Ratio 1.1 RATIO (0.9-2.4); AST(SGOT) 24 U/L (15-37); Alanine Aminotransfer ALT/SGPT 31 U/L (13-56); Albumin, Serum 3.5 g/dL (3.2-5.0); Alkaline Phosphatase 109 U/L (45-117); Anion Gap 9 (5-15); BUN 8 mg/dL (7-18); BUN/Creat Ratio 12.5 RATIO (10-20); Chloride 103 mmol/L (98-107); Cholesterol 111 mg/dL (200); Creatinine, Serum 0.64 mg/dL (0.55-1.02); EST Glomerular Filtration Rate 100 mL/min (>60); Est Glom Filt Rate - Afr Amer 121 mL/min (>60); Globulin 3.2 g/dL (2.2-4.2); Glucose 135 mg/dL (74-106); High Density Lipoprotein 55 mg/dL; Magnesium 2.2 mg/dL (1.6-2.6); Potassium 3.9 mmol/L (3.5-5.1); Protein, Total 6.7 g/dL (6.4-8.2); Sodium Level 136 mmol/L (136-145); Triglycerides 170 mg/dL; Very Low Density Lipoprotein 34 mg/dL (5-40)
[2024-07-03 18:19] LABS: Hemoglobin A1c 6.9 % (3.8-5.6)
== END | disposition home or self-care (01) ==
LOC: MTLAB 14:19
PROVIDERS: PCP Family Medicine; Referring Provider Family Medicine; Visit Provider Family Medicine
DX: I48.0 Paroxysmal atrial fibrillation (principal); I10 Essential (primary) hypertension; F17.200 Nicotine dependence, unspecified, uncomplicated; R73.02 Impaired glucose tolerance (oral)
CPT/HCPCS: 36415; 80053; 80061; 81002; 83036; 83735; 84443; 85025

== ENCOUNTER → 2024-10-30 | Outpatient (CLI) | payer OTHER, SELFPAY ==
[2024-10-30 17:36] LABS: Absolute Lymphocyte Count 1.81 X10^3/uL (0.83-4.51); Absolute Neutrophil Count 5.6 X10^3/uL (2.0-7.7); Basophil# 0.06 X10^3/uL; Basophil% 0.7 % (0-1); Eosinophil# 0.37 X10^3/uL; Eosinophils% 4.4 % (0-5); Hematocrit 44.7 % (37-47); Hemoglobin 14.8 g/dL (12.0-15.0); Lymphocyte # 1.81 X10^3/ul (0.83-4.51); Lymphocyte % 21.5 % (19-41); Mean Corp Hgb Conc 33.1 g/dL (32-36); Mean Corpuscular Volume 96.5 fL (81-99); Mean Platelet Vol. 9.8 fl (6.2-12.0); Monocyte# 0.55 X10^3/uL; Monocyte% 6.5 % (0-10); NRBC Flagged by Analyzer 0 % (0-5); Neutrophil # 5.61 X10^3/uL (2.7-7.7); Neutrophil % 66.7 % (47-70); Platelet Count 328 K/mm3 (150-450); RBC Distribution Width CV 12.7 % (11.6-14.6); RBC Distribution Width SD 45.2 fl (35.1-43.9); Red Blood Count 4.63 M/mm3 (4.2-5.4); White Blood Count 8.4 K/mm3 (4.4-11.0)
[2024-10-30 18:25] LABS: Microalbumin,Random Urine < 12.0 mg/L (NO RANGE EST.); Microalbumin:Creatinine Ratio UNABLE TO CALCULATE mg/g CRE
[2024-10-30 18:34] LABS: ALB/GLOB Ratio 1.8 RATIO (0.9-2.4); AST(SGOT) 30 U/L (<=31); Alanine Aminotransfer ALT/SGPT 19 U/L (<=34); Albumin, Serum 4.3 g/dL (3.4-4.8); Alkaline Phosphatase 99 U/L (35-104); Anion Gap 11 (5-15); BUN 10 mg/dL (4-19); Calcium,Total 9.6 mg/dL (7.6-11.0); Carbon Dioxide 28.4 mmol/L (21.0-32.0); Chloride 99 mmol/L (98-108); Cholesterol 108 mg/dL (<=200); Creatinine, Serum 0.74 mg/dL (0.70-1.20); EST Glomerular Filtration Rate 91 (>60); Globulin 2.4 g/dL (2.2-4.2); Glucose 144 mg/dL (70-99); High Density Lipoprotein 54 mg/dL; Low Density Lipoprotein Calc. 23 mg/dL; Potassium 4.1 mmol/L (3.3-5.1); Protein, Total 6.8 g/dL (5.9-8.4); Sodium Level 138 mmol/L (133-145); Total Bilirubin 0.39 mg/dL (0.00-1.30); Triglycerides 155 mg/dL; Very Low Density Lipoprotein 31 mg/dL (5-40); cholesterol:hdl ratio screen 2.01
[2024-10-30 19:04] LABS: Hemoglobin A1c 6.9 % (<=5.6)
== END | disposition home or self-care (01) ==
LOC: MFPLAB 15:19
PROVIDERS: PCP Family Medicine; Referring Provider Family Medicine; Visit Provider Family Medicine
DX: E11.8 Type 2 diabetes mellitus with unspecified complications (principal)
CPT/HCPCS: 36415; 80053; 80061; 82043; 82570; 83036; 85025

== ENCOUNTER → 2025-02-03 | Outpatient (CLI) | payer OTHER, SELFPAY ==
[2025-02-03 08:14] LABS: Mucous, Urine 0 SEEN /hpf (<or=2+)
[2025-02-03 10:14] LABS: Color, Urine Yellow (Yellow); Glucose, Dipstick 1000 mg/dl (Normal); Ketone-Dipstick Negative (Negative); Leukocyte Esterase-Dipstick Negative /ul (Negative); Nitrite-Dipstick Negative (Negative); Occult Blood-Urine 250 /ul (Negative); Protein-Dipstick 15 mg/dl (Negative); Specific Gravity, Urine 1.010 (1.002-1.030); Urine Bilirubin Dipstick Negative (Negative)
[2025-02-03 10:21] LABS: Hematocrit 45.0 % (37-47); Hemoglobin 15.2 g/dL (12.0-15.0); Immature Granulocytes Count 0.040 X10^3/uL (0.0-0.0); Mean Corp Hgb Conc 33.8 g/dL (32-36); Mean Corpuscular Volume 95.3 fL (81-99); Mean Platelet Vol. 8.9 fl (6.2-12.0); NRBC Flagged by Analyzer 0 % (0-5); Platelet Count 316 K/mm3 (150-450); RBC Distribution Width CV 12.6 % (11.6-14.6); RBC Distribution Width SD 44.6 fl (35.1-43.9); Red Blood Count 4.72 M/mm3 (4.2-5.4); White Blood Count 10.4 K/mm3 (4.4-11.0)
[2025-02-03 10:22] LABS: Red Blood Cells-Urine 0-5 SEEN /hpf (0-5); Squamous Epithelial Cells - UA 0-5 SEEN /hpf (5-10)
[2025-02-03 10:31] LABS: Creatinine, Urine (random) 40.30 mg/dL (28.00-217.00); Microalbumin,Random Urine 12.5 mg/L (<20 mg/L)
[2025-02-03 10:38] LABS: AST(SGOT) 26 U/L (<=31); Alanine Aminotransfer ALT/SGPT 21 U/L (<=34); Albumin, Serum 4.2 g/dL (3.4-4.8); Alkaline Phosphatase 104 U/L (35-104); Anion Gap 12 (5-15); BUN 12 mg/dL (4-19); BUN/Creat Ratio 16.7 RATIO (10-20); Calcium,Total 9.5 mg/dL (7.6-11.0); Carbon Dioxide 27.3 mmol/L (21.0-32.0); Chloride 98 mmol/L (98-108); Cholesterol 110 mg/dL (<=200); Globulin 2.7 g/dL (2.2-4.2); Glucose 150 mg/dL (70-99); Low Density Lipoprotein Calc. 42 mg/dL; Potassium 3.7 mmol/L (3.3-5.1); Triglycerides 76 mg/dL; Very Low Density Lipoprotein 15 mg/dL (5-40); cholesterol:hdl ratio screen 2.07
== END | disposition home or self-care (01) ==
LOC: MTLAB 08:08
PROVIDERS: PCP Family Medicine; Referring Provider Family Medicine; Visit Provider Family Medicine
DX: F17.200 Nicotine dependence, unspecified, uncomplicated (principal); E11.69 Type 2 diabetes mellitus with other specified complication
CPT/HCPCS: 80053; 80061; 81001; 82043; 82570; 83036; 85025